=== PATIENT | male | born 1950 | race Caucasian/White ===

== ENCOUNTER 2021-02-08 14:59 | Emergency (ER) | payer MEDICARE, OTHER ==
[~2021-02-08 14:59] MED LIST: ASPIRIN CHEWABL81 MG PO; CIPRO500 MG PO; FLOMAX 0.4 MG0.4 MG PO; FLOMAX0.4 MG PO; KEFLEX250 MG PO; LOPRESSOR50 MG PO; NORCO 5-325 TA1 EACH PO; ONDANSETRON ODT4 MG SL; PERCOCET 5-3251 EACH PO
[2021-02-08 19:55] LABS: BASOPHIL 0.1 % (0-2); EOSINOPHIL 0 % (0-7); HGB 16.3 g/dl (13.2-18.0); MCH 30.2 pg (25.0-31.0); MCHC 32.6 g/dL (32.0-36.0); MCV 92.6 fL (78.0-100.0); MONOCYTE 3.3 % (0-12); MPV 9.6 fL (6.0-9.5); NEUTROPHIL 87.3 % (41-80); NRBC 0; PLT 223 K/uL (150-400); RDW 12.1 % (11.5-14.0); WBC 9.9 K/uL (4.0-10.5)
[2021-02-08 19:58] LABS: ALBUMIN 4.2 g/dL (3.4-5.0); BILIRUBIN - TOTAL 1.2 mg/dL (0.2-1.0); BUN/CREAT RATIO (CALC) 16.1 RATIO; CREATININE 1.37 mg/dL (0.67-1.17); GLOBULIN (CALCULATION) 3.1 g/dL; POTASSIUM 4.4 mmol/L (3.5-5.1); TOTAL PROTEIN 7.3 g/dL (6.4-8.2)
[2021-02-08 20:48] LABS: BILIRUBIN NEGATIVE (NEGATIVE); BLOOD TRACE-INTACT Ery/uL (NEGATIVE); CLARITY CLEAR (CLEAR); COLOR YELLOW (YELLOW); GLUCOSE (U) NORMAL (NORMAL); LEUKOCYTES NEGATIVE Leu/uL (NEGATIVE); NITRITE NEGATIVE (NEGATIVE); PROTEIN TRACE (LOW) mg/dL (NEGATIVE); SPECIFIC GRAVITY >=1.030 (1.001-1.030); pH 6.5 (5.0-9.0)
[2021-02-08 20:58] LABS: BACTERIA TRACE; MUCOUS MODERATE; SQUAMOUS EPITHELIAL CELLS RARE; URINARY WBC RARE
[2021-02-08] MEDS ORDERED: ONDANSETRON ODT4 MG PO (21:33)
[2021-02-08] MEDS ORDERED: FLOMAX 0.4 MG0.4 MG PO (21:33)
[2021-02-08] MEDS ORDERED: OXY-IR 5MG5 MG PO (21:33)
== END 2021-02-08 22:33 | disposition home or self-care (01) ==
LOC: FER 14:59
PROVIDERS: Emergency Medicine
DX: N13.2 Hydronephrosis with renal and ureteral calculous obstruction (principal)
CPT/HCPCS: 36415; 80053; 81001; 83605; 83690; 85025; 87040; J0692; J1170; J2405; J7030